=== PATIENT | female | born 1995 | race Caucasian/White ===

== ENCOUNTER 2021-07-01 12:07 | Emergency (ER) | payer MEDICAID ==
[~2021-07-01] VITALS: Ht 167.6 cm; Wt 63.0 kg
[2021-07-01] MEDS ORDERED: SODIUM CHLORIDE 0.9% 1,000 ML IV ONE (12:30)
[2021-07-01 12:56] LABS: HEMATOCRIT. 45.3 % (36.0-48.0); HEMOGLOBIN. 15.2 g/dL (12.0-16.0); MEAN CORPUSCULAR HEMOGLOBIN 31.4 pg (28.0-32.0); MEAN CORPUSCULAR VOLUME 93.9 fL (81.0-99.0); MEAN PLATELET VOLUME 7.9 fl (7.4-10.4); PLATELET 313 x1000/uL (130-400); RED BLOOD CELL COUNT 4.83 mill/uL (4.2-5.4); RED CELL DISTRIBUTION WIDTH 12.2 % (11.6-14.6)
[2021-07-01 13:04] LABS: CHLORIDE 103 mEq/L (98-107)
[2021-07-01 13:05] LABS: HCG SCREEN NEGATIVE
[2021-07-01 13:09] LABS: ETHANOL BLOOD < 10 mg/dL
[2021-07-01 13:13] LABS: CREATINE KINASE 404 IU/L (26-192)
[2021-07-01 13:16] LABS: PLATELET ESTIMATE NORMAL
[2021-07-01 15:32] LABS: CLARITY URINE CLEAR (CLEAR); COLOR URINE YELLOW (YELLOW); KETONES URINE 3+ (NEGATIVE); LEUKOCYTE ESTERASE URINE NEGATIVE (NEGATIVE); NITRITE URINE NEGATIVE (NEGATIVE); OCCULT BLOOD URINE NEGATIVE (NEGATIVE); PROTEIN URINE NEGATIVE (NEGATIVE); SPECIFIC GRAVITY URINE 1.004 (1.005-1.030); UROBILINOGEN URINE 0.2 E.U./dL (0.2-1.0)
[2021-07-01 15:50] LABS: *BARBITURATES SCREEN URINE NEGATIVE (NEGATIVE); *BENZODIAZEPINES SCREEN URINE NEGATIVE (NEGATIVE); *COCAINE SCREEN URINE NEGATIVE (NEGATIVE); METHADONE URINE SCREEN NEGATIVE (NEGATIVE); OPIATES URINE SCREEN NEGATIVE (NEGATIVE)
[2021-07-01 15:51] LABS: *AMPHETAMINES SCREEN URINE NEGATIVE (NEGATIVE); CANNABINOID URINE SCREEN NEGATIVE (NEGATIVE); PHENCYCLIDINE URINE SCREEN NEGATIVE (NEGATIVE)
[2021-07-01] MEDS ORDERED: DIPHENHYDRAMINE 50MG CAPSULE PO ONE (22:30)
[2021-07-02] MEDS ORDERED: ZOLPIDEM TARTRATE 5MG TABLET PO ONE (00:15)
[2021-07-02 07:45] VITALS: BP 128/78
[2021-07-02] MEDS ORDERED: BUSP10TA4 PO (08:35)
[2021-07-02] MEDS ORDERED: FLUO10CA25 PO (08:35)
[2021-07-02] MEDS ORDERED: FLUOXETINE HCL 10 MG CAPSULE PO SCH (09:00)
[2021-07-02] MEDS ORDERED: BUSPIRONE HCL 5MG TABLET PO SCH (09:00)
== END 2021-07-02 09:19 | disposition home or self-care (01) ==
LOC: EDBD 12:07 → ER 12:07
DX: R41.82 Altered mental status, unspecified (principal)
CPT/HCPCS: 36415; 70450; 71045; 80053; 80305; 80320; 81003; 82140; 82550; 82962; 83605; 83880; 84443; 84484; 84703; 85025; 85379; 96360; 96361; 99285; J7030; Q0163; G0480